=== PATIENT | female | born 1990 | race Caucasian/White ===

== ENCOUNTER 2024-07-29 21:39 | Emergency (ER) | payer MEDICAID ==
[~2024-07-29] VITALS: Ht 170.2 cm; Wt 82.0 kg
[2024-07-29 21:43] VITALS: O2SAT 98
[2024-07-29 22:51] LABS: BASOPHILS % 0.5 % (0.0-2.0); EOSINOPHILS % 5.3 % (0.0-5.0); HEMATOCRIT. 40.6 % (36.0-48.0); HEMOGLOBIN. 13.9 g/dL (12.0-16.0); LYMPHOCYTES % 28.7 % (20.0-50.0); MEAN CORPUSCULAR HEMOGLOBIN 31.1 pg (28.0-32.0); MEAN CORPUSCULAR HGB CONC 34.1 g/dL (31.0-37.0); MEAN CORPUSCULAR VOLUME 91.3 fL (81.0-99.0); MEAN PLATELET VOLUME 8.4 fl (7.4-10.4); MONOCYTES % 7.6 % (2.0-8.0); NEUTROPHILS % 57.9 % (40.0-76.0); PLATELET 229 x1000/uL (130-400); RED BLOOD CELL COUNT 4.45 mill/uL (4.2-5.4); RED CELL DISTRIBUTION WIDTH 13.2 % (11.6-14.6); WHITE BLOOD COUNT 9.1 x1000/uL (4.5-11.0)
[2024-07-29 22:52] LABS: CLARITY URINE CLEAR (CLEAR); COLOR URINE YELLOW (YELLOW); GLUCOSE URINE NEGATIVE (NEGATIVE); KETONES URINE NEGATIVE (NEGATIVE); LEUKOCYTE ESTERASE URINE NEGATIVE (NEGATIVE); NITRITE URINE NEGATIVE (NEGATIVE); OCCULT BLOOD URINE NEGATIVE (NEGATIVE); PH URINE 6.5 (4.5-8.0); PROTEIN URINE NEGATIVE (NEGATIVE); SPECIFIC GRAVITY URINE 1.026 (1.005-1.030)
[2024-07-29 22:59] LABS: CHLORIDE 108 mEq/L (98-107); POTASSIUM 3.8 mEq/L (3.5-5.1); SODIUM 142 mEq/L (136-145)
[2024-07-29 23:00] LABS: CALCIUM 9.6 mg/dL (8.7-10.4); CARBON DIOXIDE 25 mEq/L (21-32); INR 0.9; PROTHROMBIN TIME 10.2 sec (9.6-11.0)
[2024-07-29 23:05] LABS: CREATININE 0.7 mg/dL (0.6-1.0); GLUCOSE 111 mg/dL (70-105); UREA NITROGEN BLOOD 11 mg/dL (9-23)
[2024-07-29 23:16] LABS: HCG SCREEN NEGATIVE
[2024-07-29] MEDS: TETANUS, DIPHTHERIA, PERTUSSIS VAC/PF 0.5ML (>10YR OLD) IM ONE (23:33)
[2024-07-29] MEDS: LIDOCAINE HCL 1% 20ML VIAL INFIL ONE (23:34)
[2024-07-29] MEDS: BACITRACIN ZINC OINT UDPKT TOP ONE (23:34)
[2024-07-30] MEDS: KETOROLAC 30MG/ML VIAL IV STA (00:59)
[2024-07-30 01:30] VITALS: BP 121/76; PULSE 70; RESP 18; TEMP 36.8; O2SAT 97
== END 2024-07-30 01:30 | disposition home or self-care (01) ==
LOC: ER 21:39
DX: S02.2XXA Fracture of nasal bones, initial encounter for closed fracture (principal); S01.21XA Laceration without foreign body of nose, initial encounter; V89.2XXA Person injured in unspecified motor-vehicle accident, traffic, initial encounter; Y93.89 Activity, other specified; Y92.89 Other specified places as the place of occurrence of the external cause; Y99.8 Other external cause status
CPT/HCPCS: 80048; 81003; 81025; 84703; 83690; 85025; 85610; 86850; 86900; 86901; 36415; 71045; 72170; 70450; 70486; 72125; 90715; 93005; 12015; 90471; 96374; 99285; J3490; Z7610 ×2; J1885; A4606